=== PATIENT | male | born 1945 | race Caucasian/White ===

== ENCOUNTER 2021-08-31 05:50 | Day surgery (SDC) | payer OTHER ==
[~2021-08-31] VITALS: Ht 182.9 cm; Wt 83.9 kg
[2021-08-31] MEDS ORDERED: CEFAZOLIN SOD 2 GM in D5W 50 ML IV ONE (07:00)
[2021-08-31] MEDS ORDERED: METOCLOPRAMIDE HCL 10 MG/2 ML VIAL IVP ONE (09:02)
[2021-08-31] MEDS ORDERED: SUCCINYLCHOLINE CHLORIDE 20 MG/ML(QUELICIN) IVP ONE (09:02)
[2021-08-31] MEDS ORDERED: PROPOFOL 200MG/ 20ML VIAL (DIPRIVAN) IV ONE (09:02)
[2021-08-31] MEDS ORDERED: LR 1,000 ML IV.SOLN IV ONE (09:02)
[2021-08-31] MEDS ORDERED: SEVOFLURANE 15 MIN GAS INH ONE (09:02)
[2021-08-31] MEDS ORDERED: DECADRON 4 MG TABLET PO ONE (09:02)
[2021-08-31] MEDS ORDERED: ONDANSETRON HCL 4 MG/2 ML VIAL IVP ONE (09:02)
[2021-08-31] MEDS ORDERED: BUPIVACAINE /PF 0.25% 10 ML VIAL INJ ONE (09:02)
[2021-08-31] MEDS ORDERED: HYDROmorphone 2 MG/ML VIAL IVP ONE (09:02)
[2021-08-31] MEDS ORDERED: ROCURONIUM BROMIDE 10 MG/ML (ZEMURON) IV ONE (09:02)
[2021-08-31] MEDS ORDERED: NS IRRIG SOLN 1000 ML IR ONE (09:02)
[2021-08-31] MEDS ORDERED: KETOROLAC TROMETHAMINE 30 MG VIAL IVP ONE (09:02)
[2021-08-31] MEDS ORDERED: BUPIVACAINE /PF 0.5% 30 ML VIAL INJ ONE (09:02)
[2021-08-31] MEDS ORDERED: KETOROLAC TROMETHAMINE 30 MG VIAL IVP PRN (11:00)
[2021-08-31] MEDS ORDERED: IBUPROFEN 400 MG TABLET PO ONE (11:00)
[2021-08-31] MEDS ORDERED: ONDANSETRON HCL 4 MG/2 ML VIAL IVP PRN (11:00)
[2021-08-31] MEDS ORDERED: MORPHINE 4 MG INJ. 4 MG/ML VIAL IVP PRN (11:00)
[2021-08-31] MEDS ORDERED: traMADol HCL HCL 50 MG TABLET (ULTRAM) PO PRN (11:30)
[2021-08-31] MEDS ORDERED: MORPHINE 2 MG/ML INJ. SYRINGE ONE (11:35)
[2021-08-31 16:02] VITALS: BP_SYST 133
== END 2021-08-31 14:10 | disposition home or self-care (01) ==
LOC: SDS 05:50 → SMU 05:50 → SDS 14:10
PROVIDERS: ATTEND Surgery
DX: K40.20 Bilateral inguinal hernia, without obstruction or gangrene, not specified as recurrent (principal); I48.91 Unspecified atrial fibrillation; K21.9 Gastro-esophageal reflux disease without esophagitis; G47.00 Insomnia, unspecified; Z87.891 Personal history of nicotine dependence; Z79.899 Other long term (current) drug therapy; Z20.822 Contact with and (suspected) exposure to COVID-19
CPT/HCPCS: 36415 ×2; 49650; 93005; 87426; U0003; C1781 ×2; J8540; J3490 ×2; J0690; J1885; J2765; J2405; J2704; J0330; J1170; J2270; J7060; J7120; C1727